=== PATIENT | female | born 2000 | race Caucasian/White ===

== ENCOUNTER 2025-07-23 20:56 | Observation (INO) | payer OTHER, SELFPAY ==
--- OUTSIDE RECORDS SUMMARY | 2025-07-23 21:12 | XMS_ITS | Data Portability ---
Author Organization [place] [facility], [employer] Address [address] [place] [address] Care Team Providers Care Crimp Setter Name Role Phone MARIANNA BAILEY Referring Provider Assessment No assessment recorded. Plan of Treatment Reminders Order Date Submit Date Provider Last Modified By Organization Details Last Modified Time Details Appointments None record ed. Lab None record ed. Referral None record ed. Procedures None record ed. Surgeries None record ed. Imaging None record ed. Medication Orders None record ed. Patient TargetsNo targets recorded. Patient InstructionsNo instructions recorded. Reason for Referral None Reported. Results Created Date Observation Date Name Description Value Unit Range Abnormal Flag Note LastModifiedBy Organization Detail LastModifiedTime 06/21/2006/21/2025 compl ete obste tric ultra sound >14 weeks + trans vagin al ultra sound ( ultra sound appro ach: trans abdom inal and trans vagin al ) No observ ation record ed. [facility] [address] [place] [address], [place], [address], 06/21/2025 19:16:44 07/13/20 25 07/12/2025 [place], obste tric, follo w-up No observ ation record ed. [facility] [address] [place] [address], [place], [address], 07/13/2025 18:47:19 Result Notes None recorded. Medical Equipment None Reported. Medications Name Sig Start Date Stop Date Status Note LastModified by Organization Details LastModified Time methylpredn isolone 4 mg tablets in a dose pack FOLLOW PACKAGE DIRECTION S active Not Available Not Available No t Available doxycycline hyclate 100 mg tablet TAKE 1 TABLET BY MOUTH TWICE DAILY UNTIL GONE 06/21 completed Not Available Not Available Not Available Vitals None Recorded Social History None recorded. Functional Status None recorded. Mental Status None recorded. Family History Nothing Reported. Medical History No medical history recorded. Gynecological HistoryNo gynecological history recorded. Obstetrics History GPAL:G 0 P 0 0 0 0 Past Encounters Encounter ID Performer Location Encounter Start Date Encounter Closed Date Diagnosis/Indication Diagnosis SNOMED-CT Code Diagnosis ICD10 Code Diagnosis IMO Codes Diagnosis Note [id number] Juwan Ferris MD [facility] [address] [place] [address] [address] [place] [address] 06/21/2025 12:51:02 06/21/2025 14:31:19 [id number] Juwan Ferris MD [facility] [address] [place] [address] [address] [place] [address] 07/12/2025 13:38:25 07/12/2025 14:37:00 Health Concerns Section Related Observation LastModified by Organization Detai ls LastModified Time None Recorded Concern Status LastModified by Organization Details LastModified Time None Recorded Advance Directives Directive None Recorded Payers Insurance Date Sequence Insurance Name Policy Number Policy Finch Covered Member ID Finch Member ID Guarantor Name 07/19/2025 1 [facility]) Abhilash Mendosa [id number] Navya Gifford OBGyn Episode No OBEpisode recorded.
--- OUTSIDE RECORDS SUMMARY | 2025-07-23 21:12 | XMS_ITS ---
Author Organization Unknown ENCOUNTERS Encounter Performer Location Date Diagnosis Diagnosis Status Outpatient [address] [id number] *Note: Encounters from your own facility or health system may be excluded. Allergies, Adverse Reactions, Alerts Allergen Type Severity Identification Date Medications Name Date Quantity Days Supplied GPI Number
[2025-07-23 21:24] VITALS: BP 112/70; PULSE 102
[2025-07-23 21:29] VITALS: TEMP 37.7
[2025-07-23 21:31] VITALS: BP 106/68; PULSE 97
[2025-07-23 21:39] LABS: Add Urine Microscopic? YES; Appearance Urine Cloudy (Clear); Glucose Urine UA Negative (Negative); Leukocyte Esterase Ur 1+ LEU/UL (Negative); Nitrate Urine Negative (Negative); Non Pathogenic Casts 0-2; Specific Grav Ur 1.018 (1.001-1.035)
[2025-07-23 21:49] VITALS: BP 75/40; PULSE 137
[2025-07-23] MEDS: DEXTROSE 5%/LACTATED RINGERS 1,000 ML 999 ML IV CONT ×2 (22:15→23:16)
[2025-07-23] MEDS: ONDANSETRON INJ 4 MG/2 ML VIAL IV PUSH (22:30)
[2025-07-23 23:48] VITALS: BMI 25.0
--- NOTE | 2025-07-25 09:13 | PM.OBTRLD ---
OB - Triage/Final Diagnosis Visit Information Reason for evaluation: threatened labor Comments/Additional reasons for admission: I have assessed the risk for this patient, Navya Gifford, and determined that she would benefit from observation care. Evaluation Laboratory results: Laboratory Tests 07/23/25 21:27 Urine Color Yellow Urine Appearance Cloudy H Urine pH 7.0 Ur Specific Bryant 1.018 Urine Protein Trace Urine Glucose (UA) Negative Urine Ketones 4+ H Ur Blood (Man) Negative Urine Nitrate Negative Urine Bilirubin Negative Urine Urobilinogen 0.2 Leukocyte Esterase Rfl 1+ H Urine RBC 0-2 Urine WBC 11-20 H Ur Squamous Epith Cells Occasional Urine Bacteria 1+ H Urine Casts 0-2
== END 2025-07-23 23:55 | disposition home or self-care (01) ==
PROVIDERS: Admitting Provider Obstetrics & Gynecology; Visit Provider Obstetrics & Gynecology
DX: O47.02 False labor before 37 completed weeks of gestation, second trimester (principal); Z3A.23 23 weeks gestation of pregnancy
CPT/HCPCS: 81001; 87086; 96361; 96374; G0378; G0379; J2405; J7121